=== PATIENT | male | born 1985 | race American Indian/Alaskan Native ===

== ENCOUNTER 2020-05-15 08:25 | Emergency (ER) | payer SELFPAY ==
[2020-05-15 08:32] VITALS: BP 151/85
[2020-05-15] MEDS ORDERED: IBUPROFEN 800 MG TAB PO ONE (10:38)
[2020-05-15] MEDS ORDERED: predniSONE 20 MG TAB PO ONE (10:38)
[2020-05-15] MEDS ORDERED: ACETAMINOPHEN 500 MG TAB PO ONE (10:39)
--- NOTE | 2020-05-15 10:43 | Emergency Department Report ---
ED General Adult HPI - General Chief complaint: Sore Throat Stated complaint: SORE THROAT Time Seen by Provider: 05/15/20 09:18 Source: patient Mode of arrival: Ambulatory Limitations: No Limitations - History of Present Illness Initial comments: 34-year-old -[place] male patient without past medical history presents with complaints of sore throat x1 day. He rates his pain as a 6/10 in severity and states he has some difficulty swallowing. He denies any cough, shortness of breath, chest pain, rash, or known fever. Pain worsens with swallowing per patient. Ibuprofen did help some with pain. - Related Data Previous Rx's Medication Instructions Recorded Last Taken Type Amoxicillin [Trimox CAP] 500 mg PO BID 10 Days #20 capsule 05/15/20 Unknown Rx predniSONE [Deltasone] 20 mg PO BID 1 Days #2 tab 05/15/20 Unknown Rx Allergies Allergy/AdvReac Type Severity Reaction Status Date / Time No Known Allergies Allergy Unverified 05/15/20 08:29 ED Review of Systems ROS: Stated complaint: SORE THROAT Other details as noted in HPI Constitutional: denies: chills, diaphoresis, fever, malaise, weakness ENT: throat pain Respiratory: denies: cough, shortness of breath Cardiovascular: denies: chest pain Gastrointestinal: denies: nausea, vomiting Skin: denies: rash, lesions Hematological/Lymphatic: denies: swollen glands ED Past Medical Hx - Past Medical History Previous Medical History?: No - Surgical History Past Surgical History?: No - Social History Smoking Status: Never Smoker Substance Use Type: None - Medications Home Medications: Home Medications Medication Instructions Recorded Confirmed Last Taken Type Amoxicillin [Trimox CAP] 500 mg PO BID 10 Days #20 capsule 05/15/20 Unknown Rx predniSONE [Deltasone] 20 mg PO BID 1 Days #2 tab 05/15/20 Unknown Rx ED Physical Exam - General Limitations: No Limitations General appearance: alert, in no apparent distress - Head Head exam: Present: atraumatic, normocephalic - Eye Eye exam: Present: normal appearance. Absent: scleral icterus - Expanded ENT Exam Expanded Mouth exam: Present: tongue normal. Absent: drooling, trismus, muffled voice Throat exam: Positive: tonsillar erythema (Bilateral), tonsillomegaly (Bilateral), tonsillar exudate (Bilateral) - Neck Neck exam: Present: full ROM, lymphadenopathy (Anterior cervical). Absent: meningismus - Respiratory Respiratory exam: Present: normal lung sounds bilaterally. Absent: respiratory distress - Cardiovascular Cardiovascular Exam: Present: regular rate, normal rhythm. Absent: systolic murmur, diastolic murmur, rubs, gallop - Extremities Exam Extremities exam: Present: normal inspection - Neurological Exam Neurological exam: Present: alert, oriented X3 - Psychiatric Psychiatric exam: Present: normal affect, normal mood - Skin Skin exam: Present: warm, dry, intact, normal color. Absent: rash ED Course Vital Signs 05/15/20 05/15/20 05/15/20 08:32 10:44 10:45 Temperature 100.2 F H Pulse Rate 125 H Respiratory 18 20 20 Rate Blood Pressure 151/85 [Right] O2 Sat by Pulse 96 Oximetry 05/15/20 11:45 Temperature 99.9 F H Pulse Rate 98 H Respiratory Rate Blood Pressure [Right] O2 Sat by Pulse Oximetry ED Medical Decision Making - Medical Decision Making 34-year-old -[place] male patient without past medical history presents with complaints of sore throat x1 day. He rates his pain as a 6/10 in severity and states he has some difficulty swallowing. He denies any cough, shortness of breath, chest pain, rash, or known fever. Pain worsens with swallowing per patient. Ibuprofen did help some with pain. On exam patient has 3+ swelling of the tonsils with exudate and erythema. No trismus is noted. Fever at 100.2 with tachycardia noted. Patient given Tylenol, ibuprofen, and prednisone. On repeat of his vitals, temp is 99.8 and heart rate is 98. Empiric treatment for strep pharyngitis given for home with Amoxil. Patient is nontoxic-appearing, his pain is controlled, he is stable for discharge home. Patient to follow-up with primary care in 3 days. Discussed signs and symptoms that should prompt immediate return to the emergency department in detail with patient who verbalizes understanding. Critical care attestation.: If time is entered above; I have spent that time in minutes in the direct care of this critically ill patient, excluding procedure time. ED Disposition Clinical Impression: Strep pharyngitis Disposition: - TO HOME OR SELFCARE Is pt being admited?: No Condition: Stable Instructions: Strep Throat (ED) Additional Instructions: Continue ibuprofen as needed for pain. Prescriptions: predniSONE [Deltasone] 20 mg PO BID 1 Days #2 tab Amoxicillin [Trimox CAP] 500 mg PO BID 10 Days #20 capsule Referrals: LLUVIA KELLOGG MD [Primary Care Provider] - 3-5 Days
== END 2020-05-15 11:46 | disposition home or self-care (01) ==
LOC: ED 08:25
DX: J02.0 Streptococcal pharyngitis (principal)
CPT/HCPCS: 99282; J7512